=== PATIENT | female | born 1950 ===

== ENCOUNTER 2019-07-26 05:31 | Outpatient (CLI) | payer MEDICARE, OTHER | END 2019-07-26 05:32 | disposition short-term general hospital (02) | LOC: EMS 05:31 | PROVIDERS: ATTEND Surgery | DX: S59.902A Unspecified injury of left elbow, initial encounter (principal); S09.93XA Unspecified injury of face, initial encounter; W18.39XA Other fall on same level, initial encounter; Y92.002 Bathroom of unspecified non-institutional (private) residence as the place of occurrence of the external cause; R42 Dizziness and giddiness; R11.0 Nausea | CPT/HCPCS: A0425; A0427 ==